=== PATIENT | female | born 1985 ===

== ENCOUNTER 2024-11-26 09:52 | Outpatient (AMB) | payer BC, SELFPAY ==
--- OUTSIDE RECORDS SUMMARY | 2023-11-28 10:08 | XMS_ITS | Encounter Summary ---
Author Organization [facility] Address [address] [place] [address] Care Team Providers Care Air Bag Builder Name Role Phone Espinoza Yan MD Primary Care Provider Un available Encounter Details Date Type Department Care Team (Late st Contact Info) Description 11/28/2023 10:08 AM EDT Hospital Encounter TH HISTORIC ENCOUNTERS EASTERN CONVERSION ONLY Amina Romero PA [address] [place] [address] Social History Tobacco Use Types Packs/Day Years [...] care for your loved ones. For example, childcare worker or elderly care for an older adult? [...] Romero PA-C Service: -- Author Type: Physician Research Development Manager Filed: 11/28/2023 1:06 PM Encounter Date: 11/28/2023 Status: Signed Cheesemaking Laborer: Amina Romero PA-C (Physician Research Development Manager) Cosigner: Mary Elis DO Jose at 11/30/2023 9:30PM HEMATOLOGY FOLLOW UP HPI: 38-year-old mostly Estonian-speaking female who returns to our hematology clinic [...] Yan MD Sign: Amina Romero PA-C Hematology/Oncology [facility] [phone] documented in this encounter Plan of Treatment Upcoming Encounters Date Type Department Care Team (Late st Contact Info) Description 12/03/2024 8:00 AM EDT Office Visit Internal Medicine - [address] [phone] Jesse Flaherty NP [address] [place] [phone] 02/25/2025 9:15 AM EST Office Visit Internal Medicine - [address] [phone] Jesse Flaherty NP [address] [place] [phone] 06/03/2025 10:00 AM EDT Office Visit [facility] Hematology Oncology [address] [place] [phone] Amina Romero PA [address] [place] [address] documented as of this encounter Procedures Procedure Name Priority Date/Time Associated Diagnosis Comments ..MISCELLANEOUS REFERENCE LAB TEST 11/28/2023 documented in this encounter Results * Miscellaneous reference lab test (11/28/2023) us Provider Onbase MD LAB BLOOD ORDERABLES Final Re sult documented in this encounter Visit Diagnoses Not on filedocumented in this encounter Care Teams Air Bag Builder Relationship Specialty Start Date End Date Espinoza Yan MD PCP - General Internal Medicine 07/18/16 10/21/24 documented as of this encounter
--- NOTE | 2024-11-26 09:58 | MHC.OFFVIS ---
Vital Signs 11/26/24 10:05 Height 5 ft Weight 183 lb BMI 35.7 BP 124/88 Blood Pressure Location Lt brachial Position Sitting Respiration 16 Pulse 84 Pulse Oximetry (%) 97 Intake Visit Reasons: vertigo/dizziness Records Management Assistant Required: No Allergies No Known Allergies Allergy (Verified 11/26/24 10:05) Medication List - Last Reconciled 11/26/24 by Blanca Kelley CNP ascorbic acid (vitamin C) mg PO cholecalciferol (vitamin D3) 50 mcg PO DAILY cyanocobalamin (vitamin B-12) 1,000 mcg PO DAILY folic acid PO minoxidil mg PO omeprazole 20 mg PO DAILY semaglutide (Ozempic) 1 mg subcut QWEEK HPI Comments Details: The patient is a 39-year-old female presenting with vertigo and associated symptoms. The vertigo has been occurring intermittently over the past year, with episodes lasting a day or more, and is often triggered by lying down at night. Physical therapy exercises have been helpful in managing the vertigo, although the underlying cause remains undetermined. The patient also reports chronic neck pain, which is exacerbated when lying down and is associated with a burning sensation extending to the shoulder. Previous evaluations included an EMG, which was normal, and an MRI of the cervical spine, which was also normal. She had been seen by in 2022 for upper extremities for which the EMG had been performed. The patient experiences sleep disturbances, often waking multiple times during the night, and has been using melatonin to aid sleep. There is a history of iron deficiency anemia, which has been managed with iron supplements and is currently stable. She denies headaches, falls, LOC, CP, or palpitations. She does not have any known history of seizure or migraine. Prior workup: 10/31/2024 CTA head and neck at [facility]- normal EMG upper extremities- Normal here in 2022 with C-spine MRI - Normal per records but no report or imaging available for review [facility] Medical History (Updated 11/26/24 @ 11:04 by Blanca Kelley CNP) GERD (gastroesophageal reflux disease) HLD (hyperlipidemia) Type 2 diabetes mellitus Lightheadedness Social History (Updated 11/25/24 @ 07:46 by Sydni Jonas CMA) Patient Tobacco Use Status: Never used Tobacco Review of Systems Const All systems reviewed & are unremarkable except as noted in HPI and below Physical Exam Vital Signs: Last Vital Signs Pulse 84 11/26/24 10:05 Resp 16 11/26/24 10:05 BP 124/88 11/26/24 10:05 Pulse Ox 97 11/26/24 10:05 BMI result Body Mass Index 35.7 Const General: cooperative, healthy appearing, comfortable and no acute distress Nutritional Appearance: well nourished Orientation/consciousness: patient oriented x3 Limitations: no limitations HEENT Head: Yes normal to inspection and Yes normocephalic Eyes General: appearance normal, both eyes and all related structures Visual De La Fuente: normal visual de la fuente by confrontation Alignment and Position: alignment normal Periorbital: periorbital findings normal Eyelids: Yes eyelids normal Conjunctivae: conjunctivae normal Sclerae: sclerae normal Neck Neck: Yes normal visual inspection and Yes full ROM Back/Spine/Pelvis Other: Tightness to the bilateral upper trapezius muscles bilaterally Cervical Spine: cervical ROM normal, cervical muscular tenderness, pain with cervical ROM (mild with turning head to the left side) and Cervical spine tenderness Neuro General: patient oriented x3 and deep tendon reflexes 2+ bilaterally Cranial nerves: Yes CN's II-XII intact bilaterally and Yes Facial sensation intact/muscles of mastication intact Cognition (Neuro): normal cognition Gait exam (Neuro): Normal gait present Motor exam (neuro): 5/5 motor strength present throughout and no tremor noted Sensory Exam: double simultaneous stimulation for sensation normal Coordination: [id number] test normal Romberg Test: Negative Pupils: Normal pupillary reactivity/response: bilateral Psych Appearance: grossly normal Mental Status: mental status grossly normal Speech and movement: Normal speech and movement present and Clear speech present Affect: normal affect Attitude: cooperative Thought process: Normal thought process present Thought content: Normal thought content present Insight: Good insight present (Psych) Judgement: Good judgement present (Psych) Assessment & Plan Assessment & Plan (1) Vertigo: Code(s): R42 - Dizziness and giddiness Category: Medical Plan This is a 39 old female patient with a history iron-deficiency anemia stable who is presenting for ongoing and intermittent vertigo over the course of last year. Her symptoms have responded somewhat to physical therapy at her workup has been extensive including a CTA of the head and neck, C-spine MRI, and EMG study all of which were unrevealing. Her exam today is normal aside from some obvious tightness to the upper trapezius muscles which may be contributing to a burning sensation that she is experiencing to the left shoulder area. Spasm of the cervical muscles BP contributing to her dizziness symptoms. We did discuss in depth today some myofascial release techniques at home including heat application in the size. I will start her on low-dose cyclobenzaprine taken at bedtime only to assist with the ongoing muscle tightness. Sleep has also been difficult for her. She does awaken numerous times throughout the night. I would like to obtain sleep study to rule out sleep disordered breathing. Poor sleep quality can contribute to ongoing muscle tightness. -continue physical therapy exercises at home -start low-dose cyclobenzaprine at bedtime -myofascial release techniques at home including heat and massage to the upper trapezius areas -referral for home sleep study Medications: New cyclobenzaprine 5 mg PO BEDTIME PRN 30 tabs 3RF muscle spasm 30 days Coding Level of Care Code New Pt Level 4 (99816) Diagnoses Vertigo R42
[2024-11-26 10:05] VITALS: BP 124/88; PULSE 84; RESP 16; O2SAT 97; BMI 35.7
--- OUTSIDE RECORDS SUMMARY | 2024-11-26 10:45 | XMS_ITS | Clinical Summary ---
Author Organization [facility] Address [address] [place] [address] Phone Care Team Providers Care Card Lacer Jacquard Name Role Phone Jennifer Loaiza MD Primary Care Provider [phone] Allergies No known active allergies Medications ascorbic acid, vitamin C, 500 mg capsule Active cholecalciferol (VITAMIN D-3) 25 mcg (1,000 unit) capsule Take by mouth. Activ e albuterol HFA (PROAIR HFA ; PROVENTIL HFA ; VENTOLIN HFA) 90 mcg/actuation inhaler Inhale 2 Puffs into the lungs every 6 hours as needed for Cough, Wheezing or Shortness of Breath. 3 Active fluticasone propionate (FLONASE) 50 mcg/actuation nasal sprayIndications :Upper respiratory tract infection, unspecified type Administer 1 spray into each nostril 2 (two) times a day. 16 g 5 Active folic acid (FOLVITE) 1 mg tablet Take 1 tablet (1 mg total) by mouth every other day. 45 each 3 5 06/04/19 26 Active ferrous sulfate 325 mg (65 mg elemental iron) tablet Take 1 tablet (325 mg total) by mouth 1 (one) time each day. 90 each 5 06/04/19 26 Active cyanocobalamin, vitamin B-12, 1,000 mcg capsule Take 1 capsule by mouth every other day. 45 capsule 3 5 06/04/19 26 Active omeprazole (PriLOSEC) [address] capsule TAKE 1 CAPSULE(20 MG) BY MOUTH 1 TIME EACH DAY 90 capsule 1 5 Active minoxidiL (LONITEN) 2.5 mg tablet Take 1 tablet (2.5 mg total) by mouth 1 (one) time each day. Active terbinafine (LamISIL) 250 mg tablet Take 1 tablet (250 mg total) by mouth 1 (one) time each day. 5 Active cetirizine (ZyrTEC) 10 mg tablet Take 1 tablet (10 mg total) by mouth 1 (one) time each day. 30 each 5 Active semaglutide (OZEMPIC) 1 mg/dose (4 mg/3 mL) injection penIndications:T ype 2 diabetes mellitus with diabetic microalbuminuria , without long-term current use of insulin ([facility] V24, [facility] V28) Inject 1 mg under the skin every 7 (seven) days. 3 mL 1 5 Active Active Problems Problem Noted Date Diagnosed Date Gastroesophageal reflux disease 10/22/2024 Thrombocytosis 09/20/2023 Diabetes ([facility] V24, [facility] V28) 03/11/2022 Overview (12/12/2023): Diagnosed 03/11/2022 Assessment & Plan (10/22/2024 9:36 AM EDT): Diabetic diet discussed. Will monitor A1c, urine microalbumin . Continue semaglutide. Orders: Hemoglobin A1c; Future Lipid panel with reflex to direct LDL; Future Microalbumin creatinine urine ratio; Future Assessment & Plan (06/04/2024 10:51 AM EDT): Dilated and discussed. Continue semaglutide. Orders: Hemoglobin A1c; Future Lipid panel with reflex to direct LDL; Future Comprehensive metabolic panel; Future Thyroid stimulating hormone with reflex to free t4 and free t3; Future Microalbumin creatinine urine ratio; Future Assessment & Plan (01/24/2024 9:26 AM EST): Diabetic diet discussed. Will check her A1c levels. Will increase Ozempic dose based on her levels. Orders: Hemoglobin A1c; Future Obesity 07/25/2018 Lichen simplex chronicus 11/07/2017 Lichen sclerosus 08/15/2017 Overview (12/12/2023): Last Assessment & Plan: Reviewed findings with patient. Well controlled. I reviewed the importance of regular maintenance topical steroid use to prevent symptoms, further scarring, and squamous cell cancer of the vulva. Even just twice weekly would be fine. She will do so. I also explained the importance of regular follow up to ensure she has no evidence of precancerous or cancerous changes and that she is not having side effects from her medication. I reviewed areas of application and amount of medication to use. Mild intermittent asthma 07/21/2016 Overview (12/12/2023): Triggered seasonally Never hosp Assessment & Plan (01/24/2024 9:26 AM EST): Stable. Continue albuterol inhaler as needed. Encounters Date Type Department Care Team Description 10/30/2024 12:58 PM EDT - 10/30/2024 11:59 PM EDT Hospital Encounter [facility] CT Scan [address] [place] [address] Lightheadedness Discharge Disposition: Home or Self Care 10/25/2024 Telephone Internal Medicine - [address] [place] [address] Jennifer Loaiza MD 10/22/2024 9:15 AM EDT Office Visit Internal Medicine - [address] [place] [address] Espinoza Yan MD Lightheadedness (Primary Dx); Type 2 diabetes mellitus with diabetic microalbuminuria, without long-term current use of insulin (CMS/[facility] V24, CMS/HCC V28); Hyperlipidemia, unspecified hyperlipidemia type; Gastroesophageal reflux disease, unspecified whether esophagitis present 10/01/2024 1:15 PM EDT Office Visit [facility] - [address] [place] [address] Chilango Tripathi PA Benign paroxysmal positional vertigo, unspecified laterality (Primary Dx) 10/01/2024 Telephone Internal Medicine - [address] [place] [address] Espinoza Yan MD from Last 3 Months Immunizations Immunization Administration Dates Next Due HPV 9-valent (Gardisil) 9yo to less than 46yo 01/10/2023,09/05/2022,06/23/2022 Influenza Quadravalent, MDCK , 0.5ml, preservative free (Flucelvax) 6mo and older 01/20/2023,12/25/2017 Influenza Quadravalent, MDCK , 0.5ml, with preservative (Flucelvax) 6mo and older 12/08/2016 Influenza trivalent, MDCK, 0 .5mL, preservative free (Flucelvax) 6mo and older 01/24/2024 Moderna SARS-CoV-2 COVID-19, mRNA, LNP-S, preservative free 03/16/2021,09/01/2020,08/04/2020 Pneumococcal conjugate 20 va lent (Prevnar 20, PCV 20) 2mo and older 05/16/2023 Tdap Tetanus diptheria acell ular pertussis (Boostrix; Adacel) 7yo and older 06/21/2018 Surgical History Surgery Date Site/Laterality Comments SECTION 2011 PROCEDURE: [place] DELIVERY ONLY; COMMENT: x2 CHOLECYSTECTOMY 09/29/2016 PROCEDURE: LAPAROSCOPY, CHOLECYSTECTOMY; COMMENT: [facility] Medical History Medical History Date Comments Mild intermittent asthma 07/21/2016 DX:Mild intermittent asthma Obesity 07/25/2018 DX:Obesity Lichen sclerosus 08/15/2017 DX:Lichen scler osus Lichen simplex chronicus 11/07/2017 DX:Lich en simplex chronicus Type 2 diabetes mellitus wit hout complications (CMS/HCC V24, CMS/HCC V28) DX:Type 2 diabetes mellitus without complications (HCC) Thrombocytosis 09/20/2023 DX:Thrombocytosi s Family History Medical History Relation Name Comments No Known Problems Brother 1 No Known Problems Brother 2 Diabetes Father Other: sepsis Father Heart attack Maternal Grandfather No Known Problems Maternal Grandmother Hypertension Mother No Known Problems Paternal Grandfather No Known Problems Paternal Grandmother No Known Problems Sister 1 No Known Problems Sister 2 Breast cancer Neg Hx Colon cancer Neg Hx Ovarian cancer Neg Hx Pancreatic cancer Neg Hx Prostate cancer Neg Hx Uterine cancer Neg Hx Relation Name Status Comments Brother 1 Alive Brother 2 Alive Father Maternal Grandfather Maternal Grandmother Alive Mother Alive Paternal Grandfather Paternal Grandmother Sister 1 Alive Sister 2 Alive Social History Tobacco Use Types Packs/Day Years [...] care for your loved ones. For example, director of child welfare services or elderly care for an older adult? [...] on file Sexual Orientation Not on file Obstetrics History Last Filed Vital Signs Vital Sign Reading Time Taken Comments Blood Pressure 112/74 10/22/2024 9:04 AM EDT Pulse 86 10/22/2024 9:04 AM EDT Temperature 36.3 C (97.4 F) 10/01/2024 1:12 PM EDT Respiratory Rate - - Oxygen Saturation 99% 06/03/2024 9:54 AM EDT Inhaled Oxygen Concentration - - Weight 85.4 kg (188 lb 4.8 oz) 10/22/2024 9:04 A M EDT Height 152.4 cm (5') 10/22/2024 9:04 AM EDT Body Mass Index 36.77 10/22/2024 9:04 AM EDT Plan of Treatment Upcoming Encounters Date Type Department Care Team (Late st Contact Info) Description 12/03/2024 8:00 AM EDT Office Visit Internal Medicine - [address] [phone] Jesse Flaherty NP [address] [place] [address] 02/25/2025 9:15 AM EST Office Visit Internal Medicine - [address] [phone] Jesse Flaherty NP [address] [place] [address] 06/03/2025 10:00 AM EDT Office Visit [facility] Hematology Oncology [address] [place] [phone] Amina Romero PA [address] [place] [phone] Health Maintenance Due Date Last Done Comments Diabetes: Annual Foot Exam 09/21/1997 Hepatitis B Vaccines (1 of 3 - 19+ 3-dose series) 09/21/2006 HIV Screening 02/05/2022 Hepatitis C Screening 02/05/2022 Depression Screening 02/28/2024 12/31/2023 COVID-19 Vaccine ( season) 2024 03/16/2021, 09/01/2020, 08/04/2020 Influenza Vaccine (#1) 2024 , 01/20/2023, 12/25/2017, Additional history exists Social Influencers of Health Screening 12/30/2024 12/31/2023 Diabetes: Blood Sugar Control Test (HGBA1C) 04/25/2025 10/23/2024, 06/04/2024, 01/24/2024, Additional history exists Diabetes: Annual Retina Eye Exam 07/03/2025 07/03/2024, 05/22/2023 Diabetes: Annual Urine Albumin-Creatinine Ratio (uACR) 10/23/2025 10/23/2024, 06/04/2024, 05/17/2023 Diabetes: Annual GFR (Glomerular Filtration Rate) 10/23/2025 10/23/2024, 06/04/2024, 09/20/2023, Additional history exists DTaP,Tdap,and Td Vaccines (2 - Td or Tdap) 06/21/2028 06/21/2018 Cervical Cancer Screening: HPV 08/07/2028 08/08/2023 Cholesterol Screening (Lipid Panel) 10/23/2029 10/23/2024, 06/04/2024, 05/17/2023 RSV Immunization Adult Patients (1 - 1-dose 75+ series) 09/21/2062 HPV Vaccines Completed 01/10/2023, 08/27, 06/23/2022 Pneumococcal Vaccine: Pediatrics (0 to 5 Years) and At-Risk Patients (6 to 49 Years) Completed 05/16/2023 HIB Vaccines Aged Out No longer eligi ble based on patient's age to complete this topic Hepatitis A Vaccines Aged Out No long er eligible based on patient's age to complete this topic IPV Vaccines Aged Out No longer eligi ble based on patient's age to complete this topic MMR Vaccines Aged Out No longer eligi ble based on patient's age to complete this topic Meningococcal ACWY Vaccine Aged Out N o longer eligible based on patient's age to complete this topic Meningococcal B Vaccine Aged Out No l onger eligible based on patient's age to complete this topic RSV Immunization Patients Under 20 months Aged Out No longer eligible based on patient's age to complete this topic Varicella Vaccines Aged Out No longer eligible based on patient's age to complete this topic Procedures Procedure Name Priority Date/Time Associated Diagnosis Comments CT ANGIO HEAD/NECK WO AND/OR W CONTRAST Routine 10/30/2024 1:29 PM EDT Lightheadedness HEMOGLOBIN A1C Routine 10/23/2024 8:44 AM EDT Type 2 diabetes mellitus with diabetic microalbuminuria, without long-term current use of insulin ([facility] V24, CMS/[facility] V28) LIPID PANEL WITH REFLEX TO DIRECT LDL Routine 10/23/2024 8:44 AM EDT Type 2 diabetes mellitus with diabetic microalbuminuria, without long-term current use of insulin ([facility] V24, CMS/[facility] V28) Hyperlipidemia, unspecified hyperlipidemia type MICROALBUMIN CREATININE URINE RATIO Routine 10/23/2024 8:44 AM EDT Type 2 diabetes mellitus with diabetic microalbuminuria, without long-term current use of insulin ([facility] V24, [facility] V28) BASIC METABOLIC PANEL Routine 10/23/2024 8:44 AM EDT Lightheadedness EXTERNAL DIABETIC RETINA EYE EXAM 07/03/2024 HM HPV Routine 08/08/2023 from Last 3 Months or Most Recently Relevant to Health Maintenance Results * CT Angio Head/Neck wo and/or w Contrast (10/30/2024 1:29 PM EDT) Anatomical Region Laterality Modality Head and Neck Computed Tomogra phy 10/31/2024 1:14 PM EDT Impressions 10/31/2024 1:16 PM EDT NO ACUTE INTRACRANIAL ABNORMALITY. -------- FINAL REPORT -------- Dictated By: Shaun Bowers Dictated Date: 10/31/2024 13:14 ET Assigned Physician: Shaun Bowers Reviewed and Electronically Signed By: Shaun Bowers Signed Date: 10/31/2024 13:16 ET Workstation ID: [id number] Transcribed By: Self Edit Transcribed Date: 10/31/2024 13:14 ET Narrative 10/31/2024 1:16 PM EDT PROCEDURE: CTA HEAD AND NECK INDICATION: Dizziness, non-specific diziness while lyinig down with neck pain TECHNIQUE: CTA of the head and neck with intravenous contrast. Multiplanar reformats. The examination was performed utilizing dose reduction techniques.3-D or MIP images were produced with postprocessing on an independent computer workstation. 90cc Omnipaque 370 injected. Scan was analyzed using [employer] based computer aided triage software. Total DLP: 3263 mGy/cm COMPARISON: No priors available. FINDINGS: Noncon Brain: Cerebral hemispheres are symmetric without evidence for mass, hemorrhage or CT evidence for acute territorial infarct. CTA Neck: There is a left-sided aortic arch. Great vessels are patent with conventional anatomy. Common carotid and internal carotid arteries are patent in the neck. Cervical vertebral arteries are patent. Visualized lung apices are clear. Soft tissues of the neck are normal. CTA Head: Intracranial portions of the internal carotid arteries are patent. Proximal middle and anterior circulation is patent. Vertebrobasilar system is patent. Proximal director of patient financial services are patent. Major dural venous sinuses opacify normally with contrast. Extracranial structures are unremarkable. Degenerative changes in the bones. Procedure Note Shaun Bowers MD - 10/31/2024 PROCEDURE: CTA HEAD AND NECK INDICATION: Dizziness, non-specific diziness while lyinig down with neck pain TECHNIQUE: CTA of the head and neck with intravenous contrast. Multiplanarreformats. The examination was performed utilizing dose reductiontechniques.3-D or MIP images were produced with postprocessing on anindependent computer workstation. 90cc Omnipaque 370 injected. Scan wasanalyzed using [employer] based computer aided triage software. Total DLP: 3263 mGy/cm COMPARISON: No priors available. FINDINGS: Noncon Brain: Cerebral hemispheres are symmetric without evidence for mass, hemorrhageor CT evidence for acute territorial infarct. CTA Neck: There is a left-sided aortic arch. Great vessels are patent withconventional anatomy. Common carotid and internal carotid arteries arepatent in the neck. Cervical vertebral arteries are patent. Visualized lung apices are clear. Soft tissues of the neck are normal. CTA Head: Intracranial portions of the internal carotid arteries are patent. Proximal middle and anterior circulation is patent. Vertebrobasilar system is patent. Proximal director of patient financial services are patent. Major dural venous sinuses opacify normally with contrast. Extracranial structures are unremarkable. Degenerative changes in thebones. IMPRESSION: NO ACUTE INTRACRANIAL ABNORMALITY. -------- FINAL REPORT -------- Dictated By: Shaun Bowers Dictated Date: 10/31/2024 13:14 ET Assigned Physician: Shaun Bowers Reviewed and Electronically Signed By: Shaun Bowers Signed Date: 10/31/2024 13:16 ET Workstation ID: [id number] Transcribed By: Self Edit Transcribed Date: 10/31/2024 13:14 ET Espinoza Yan MD IM CT PROCEDURES Final R esult * Lipid panel with reflex to direct LDL (10/23/2024 8:44 AM EDT) Cholesterol 145 0 - 200 mg/dL LAB CHEMISTRY METHOD 10/23/2024 1:51 PM EDT [facility] Triglycerides 80 0 - 150 mg/dL LAB CHEMISTRY METHOD 10/23/2024 1:51 PM EDT [facility] HDL 44 >=40 mg/dL LAB CHEMISTRY METHOD 10/23/2024 1:51 PM EDT [facility] LDL Calculated 85 0 - 100 mg/dL LAB CHEMISTRY METHOD 10/23/2024 1:51 PM EDT [facility] Comment:Estimated LDL Calcul ated using equation: Total cholesterol - HDL cholesterol - (Triglycerides/5) VLDL Cholesterol Partha 16 mg/dL LAB CHEMISTRY METHOD 10/23/2024 1:51 PM EDT [facility] Non HDL Chol. (LDL+VLDL) 101 <145 mg/dL LAB CHEMISTRY METHOD 10/23/2024 1:51 PM EDT [facility] Chol/HDL Ratio 3.3 0.0 - 4.4 LAB CHEMISTRY METHOD 10/23/2024 1:51 PM EDT [facility] Blood Venous blood specimen / Unknown Venipuncture / Unknown 10/23/2024 8:44 AM EDT 10/23/2024 8:44 AM EDT Espinoza Yan MD LAB BLOOD ORDERABLES Radha l Result Performing Organization Address City/[facility] [address]/ZIP Co de Phone Number [facility] [address] [place] [address], * (ABNORMAL) Microalbumin creatinine urine ratio (10/23/2024 8:44 AM EDT) Creatinine, Urine 147.0 mg/dL LAB CHEMISTRY METHOD 10/23/2024 2:07 PM EDT [facility] Microalb, Ur 31.9(H) 0.0 - 29.0 mg/L LAB CHEMISTRY METHOD 10/23/2024 2:07 PM EDT [facility] Microalb/Crea t Ratio 22 <30 mg/g creat LAB CHEMISTRY METHOD 10/23/2024 2:07 PM EDT [facility] Urine Urine specimen obtained by clean catch procedure / Unknown Non-blood Collection / Unknown 10/23/2024 8:44 AM EDT 10/23/2024 8:44 AM EDT Espinoza Yan MD LAB URINE ORDERABLES Radha l Result Performing Organization Address City/[facility] [address]/ZIP Co de Phone Number [facility] [address] [place] [address], * Hemoglobin A1c (10/23/2024 8:44 AM EDT) Pathologist [facility] Hemoglobin A1C 6.2 <6.5 % LAB CHEMISTRY METHOD 10/23/2024 1:45 PM EDT [facility] Mean Bld Glu Estim. 131 mg/dL LAB CHEMISTRY METHOD 10/23/2024 1:45 PM EDT [facility] Blood Venous blood specimen / Unknown Venipuncture / Unknown 10/23/2024 8:44 AM EDT 10/23/2024 8:44 AM EDT Espinoza Yan MD LAB BLOOD ORDERABLES Radha l Result [facility] [address] [place] [address], * Basic metabolic panel (10/23/2024 8:44 AM EDT) [facility] Sodium 136 133 - 145 mmol/L LAB CHEMISTRY METHOD 10/23/2024 1:48 PM T [facility] Potassium 4.6 3.5 - 5.5 mmol/L LAB CHEMISTRY METHOD 10/23/2024 1:48 PM [facility] Chloride 104 96 - 110 mmol/L LAB CHEMISTRY METHOD 10/23/2024 1:48 PM [facility] CO2 27 21 - 32 mmol/L LAB CHEMISTRY METHOD 10/23/2024 1:48 PM T [facility] Anion Gap 5 3 - 11 LAB CHEMISTRY METHOD 10/23/2024 1:48 PM [facility] Glucose 99 70 - 100 mg/dL LAB CHEMISTRY METHOD 10/23/2024 1:48 PM [facility] BUN 14 5 - 25 mg/dL LAB CHEMISTRY METHOD 10/23/2024 1:48 PM [facility] Creatinine 0.74 0.50 - 1.10 mg/dL LAB CHEMISTRY METHOD 10/23/2024 1:48 PM EDT [facility] eGFR 107 >=60 mL/min/1. 73m2 LAB CHEMISTRY METHOD 10/23/2024 1:48 PM EDT [facility] Comment:Calculation based on the Chronic Kidney Disease Epidemiology Collaboration (CKD-EPI) equation refit without adjustment for race. BUN/Creatinine Ratio 18.9 LAB CHEMISTRY METHOD 10/23/2024 1:48 PM EDT [facility] Calcium 9.7 8.5 - 10.5 mg/dL LAB CHEMISTRY METHOD 10/23/2024 1:48 PM EDT [facility] Blood Venous blood specimen / Unknown Venipuncture / Unknown 10/23/2024 8:44 AM EDT 10/23/2024 8:44 AM EDT Espinoza Yan MD LAB BLOOD ORDERABLES Radha l Result [facility] [address] [place] [address], * External Diabetic Retina Eye Exam Report (07/03/2024) Anatomical Region Laterality Modality Ultrasound us Provider [facility] US PROCEDURES Final Result * Cervical Cancer Screening: HPV (08/08/2023) Cervical Cancer Screening: HPV abstracted, negative Historical Provider HEALTH MAINTENANCE Final Result from Last 3 Months or Most Recently Relevant to Health Maintenance Insurance [facility] Care Teams Card Lacer Jacquard Relationship Specialty Start Date End Date Jennifer Loaiza MD [address] [place] [address] PCP - General Internal Medicine 10/22/24
--- OUTSIDE RECORDS SUMMARY | 2024-11-26 10:45 | XMS_ITS | Clinical Summary ---
Author Organization [employer] [facility] Address [address] [place] [address] Care Team Providers Care Package Sorter Name Role Phone Espinoza Yan MD Primary Care Provider [phone] Allergies No known active allergies Medications Medication Sig Dispensed Refills Start Date End Date Status ferrous sulfate 325 (65 FE) MG tablet Take by mouth every morning with breakfast. 0 Active vitamin D3 (cholecalciferol) 25 MCG (1000 UT) tablet Take 1 tablet (25 mcg total) by mouth daily. 0 Active ascorbic acid (VITAMIN C) 500 MG tablet Take 1 tablet (500 mg total) by mouth daily. 0 Active omeprazole (PriLOSEC) 20 MG capsule Take 1 capsule (20 mg total) by mouth daily. 0 Active metFORMIN (GLUCOPHAGE) tablet 500 mg Take 1 tablet (500 mg total) by mouth every morning with breakfast. 0 Active folic acid (FOLVITE) tablet 1 mg Take 1 tablet (1 mg total) by mouth daily. 90 tablet 0 08/21/2023 Active Cyanocobalamin 1000 MCG CAPS Take 1 capsule by mouth daily. 90 capsule 0 08/21/2023 Active Semaglutide,0.25 or 0.5MG/DOS, (Ozempic, 0.25 or 0.5 MG/DOSE,) 2 MG/3ML SOPN Inject under the skin. 0 Active Social History Tobacco Use Types Packs/Day Years Used Date Smoking Tobacco: Never Smokeless Tobacco: Never Tobacco Cessation:Counseling Given: Not Answered Alcohol Use Standard Drinks/Week Comments Yes 0 (1 standard drink = 0.6 oz pur e alcohol) Occasionally Sex and Gender Information Value Date Recorded Sex Assigned at Not on file Gender Identity Not on file Sexual Orientation Not on file Job Start Date Occupation Industry Not on file Not on file Not on file Last Filed Vital Signs Vital Sign Reading Time Taken Comments Blood Pressure 121/71 11/28/2023 10:14 AM EDT Pulse 76 11/28/2023 10:14 AM EDT Temperature 36.8 C (98.3 F) 11/28/2023 10:14 AM EDT Respiratory Rate - - Oxygen Saturation 100% 11/28/2023 10:14 AM EDT Inhaled Oxygen Concentration - - Weight 88.5 kg (195 lb) 11/28/2023 10:14 AM EDT Height 152.4 cm (5') 11/28/2023 10:14 AM EDT Body Mass Index 38.08 11/28/2023 10:14 AM EDT Plan of Treatment Health Maintenance Due Date Last Done Comments Hepatitis B Vaccines (1 of 3 - 3-dose series) 1987 Hepatitis C Screening 1987 COVID-19 Vaccine (#1) 03/24/1988 Depression Screening 1999 Preventative Health Evaluation 09/21/2005 Cervical Cancer Screening (Pap Smear) 09/21/2008 Influenza Vaccine (#1) 2024 3, 12/25/2017, 12/08/2016 DTap / Tdap / Td (2 - Td or Tdap) 06/21/2028 06/21/2018 Pneumococcal Vaccine Aged Out 05/16/2023 No long er eligible based on patient's age to complete this topic RSV Ped < 20 months Aged Out No longe r eligible based on patient's age to complete this topic Care Teams Package Sorter Relationship Specialty Start Date End Date Esipnoza Yan MD [address] [place] [id number] PCP - General Internal Medicine 08/07/23
== END 2024-11-26 10:50 | disposition home or self-care (01) ==
LOC: HO.HSM 09:53
PROVIDERS: PCP Internal Medicine; Visit Provider Nurse Practitioner
DX: R42 Dizziness and giddiness (principal)
CPT/HCPCS: 99204

== ENCOUNTER 2025-01-15 10:55 | Outpatient (AMB) | payer BC, SELFPAY ==
--- OUTSIDE RECORDS SUMMARY | 2023-11-28 09:08 | XMS_ITS | Encounter Summary ---
Author Organization [facility] Address [address] [place] [address] Care Team Providers Care Nurses Aide Name Role Phone Espinoza Yan MD Primary Care Provider [phone] Encounter Details Date Type Department Care Team (Late st Contact Info) Description 11/28/2023 10:08 AM EDT Hospital Encounter TH HISTORIC ENCOUNTERS EASTERN CONVERSION ONLY Amina Romero PA [address] [place] [address] Social History Tobacco Use Types Packs/Day Years Used Date Smoking Tobacco: Never Smokeless Tobacco: Never Alcohol Use Standard Drinks/Week Comments Yes 0 (1 standard drink = 0.6 oz pur e alcohol) Housing Instability Answer Date Recorde d Are you worried that in the next 2 months you may not have stable housing? No 12/31/2023 Food Access & Nutrition Answer Date Rec orded Do you have access to a vari ety of food including fruits and vegetables? Yes 12/31/2023 Health Literacy Answer Date Recorded How often do you need to hav e someone help you when you read instructions, pamphlets, or other written material from your doctor or pharmacy? Never 12/31/2023 Caregiver: How often do you need to have someone help you when you read instructions, pamphlets, or other written material from your doctor or pharmacy? Not on file 12/31/2023 Financial Risk Answer Date Recorded How hard is it for you to pa y for the very basics like food, housing, medical care, and air conditioning / heating? Not very hard 12/31/2023 Transportation Answer Date Recorded Has the lack of transportati on kept you from meetings, work, or from getting things needed for daily living? No Has the lack of transportati on kept you from medical appointments or from getting medications? No 12/31/2023 Social Isolation Answer Date Recorded How often do you feel lonely or isolated from th ose around you? Never 12/31/2023 Food Risk Answer Date Recorded Within the past 12 months we worried whether our food would run out before we got money to buy more. Never true 12/31/2023 Within the past 12 months th e food we bought just didn't last and we didn't have money to get more. Never true 12/31/2023 Dependent Care Answer Date Recorded Do you need help finding or paying for care for your loved ones. For example, child adolescent care or elderly care for an older adult? No 12/31/2023 Education Answer Date Recorded Do you think completing more education or training, like finishing a GED, going to college, or learning a trade, would be helpful for you? Yes 12/31/2023 Employment and Income Answer Date Recor ded During the last four weeks, have you been actively looking for work? No 12/31/2023 Living Situation Answer Date Recorded What is your living situation? Unrecognized valu e 12/31/2023 Comments No Sex and Gender Information Value Date Recorded Sex Assigned at Not on file Legal Sex Female 4:54 AM EST Gender Identity Not on file Sexual Orientation Not on file documented as of this encounter Last Filed Vital Signs Vital Sign Reading Time Taken Comments Blood Pressure 121/71 11/28/2023 10:14 AM EDT Pulse 76 11/28/2023 10:14 AM EDT Temperature - - Respiratory Rate - - Oxygen Saturation - - Inhaled Oxygen Concentration - - Weight 88.5 kg (195 lb) 11/28/2023 10:14 AM EDT Height 152.4 cm (5') 11/28/2023 10:14 AM EDT Body Mass Index 38.08 11/28/2023 10:14 AM EDT documented in this encounter Progress Notes * CORDELIA Katz - 11/28/2023 10:00 AM EDT Images from the original note were not included. Progress Notes by Amina Romero PA-C at 11/28/2023 10:00 AM Author: Amina Romero PA-C Service: -- Author Type: Physician Cell Biologist Filed: 11/28/2023 1:06 PM Encounter Date: 11/28/2023 Status: Signed Circulation Representative: Amina Romero PA-C (Physician Cell Biologist) Cosigner: MaryVijayaes DO Jose at 11/30/2023 9:30PM HEMATOLOGY FOLLOW UP HPI: 38-year-old mostly Rwandan-speaking female who returns to our hematology clinic for follow up of thrombocytosis. She is here for routine follow-up. Labs from last week showed that her RIZWAN is currently well-controlled with iron + vitamin C. She completed 90 days course of folate supplementation and folate level is optimal. B12 is much improved with supplementation, it went from 310 to 820. She saw GI in early September. She underwent colonoscopy + EGD last week and both came back normal. Thrombocytosis improved and it is only mildly elevated at 414 K. RBC remains elevated at 5.2 BCR/abl (PCR) and Prateek 2 tests were negative. Sleep study is scheduled for December 24. Aside from short lived fatigue with exertion, which could be from deconditioning as she is overweight, she has no other medical complaints at this time. She denies any clinical bleeding or black stools. (copied from prior note for clinical reference and updated as needed) As of April of this year, her platelet count was found to be elevated at 436 and then went up to 481 K in May. She also has mild leukocytosis and erythrocytosis associated with it. While H&H isnormal, MCV is low, and since end of last year iron studies have been low. She has been on iron supplementation for the past year, Although she took a 2-month break in December and January. Since earlier this year she has been taking iron with vitamin C. She denies history of heavy menses. She denies any clinical bleeding or black stools. No family history of anemia or cancer. She denies any frequent or excessive NSAIDs use. No history of gastric surgery. No bleeding or bruising. She is not a smoker. She is overweight. She has asthma and uses albuterol inhaler as needed, which is very infrequent because she claims her asthma is well-controlled. She has not had any steroids vicki long time. Her admits that she snores at night. He admits to fatigue and has to catch her breath after going up a flight of stairs, but she denies any unintentional weight loss, night sweats, swollen glands, flushing or pruritus, fever or chills, headache, dizziness, chest pain, palpitations, calf pain. ROS: GENERAL: no malaise, significant weight loss or fever NECK: No lumps, goiter, pain or significant neck swelling RESPIRATORY: No cough, wheezing or shortness of breath CARDIOVASCULAR: No chest pain, leg swelling or palpitations GI: No abdominal discomfort, blood in stools or black stools MUSCULOSKELETAL: No joint pain or swelling, back pain, or muscle pain. HEMATOLOGY/LYMPHOLOGY No prolonged bleeding, easy bruisability or swollen nodes Other Systems review is non contributory PAST MEDICAL HISTORY: Active Ambulatory Problems Diagnosis Date Noted ? No Active Ambulatory Problems Resolved Ambulatory Problems Diagnosis Date Noted ? No Resolved Ambulatory Problems Past Medical History: Diagnosis Date ? Diabetes mellitus (HCC) Obesity RIZWAN Lichen simplex chronicus Lichen sclerosus PAST SURGICAL HISTORY: Past Surgical History: Procedure Laterality Date ? CHOLECYSTECTOMY SOCIAL HISTORY: Social History Tobacco Use ? Smoking status: Never ? Smokeless tobacco: Never Substance Use Topics ? Alcohol use: Yes Comment: Occasionally She is currently not working. She lives with her and her 2 kids. FAMILY HISTORY: No family history on file. Denies family history of anemia or cancer. MEDICATIONS: Current Outpatient Medications: ? ascorbic acid (VITAMIN C) 500 MG tablet, Take 1 tablet (500 mg total) by mouth daily., Disp: , Rfl: ? Cyanocobalamin 1000 MCG CAPS, Take 1 capsule by mouth daily., Disp: 90 capsule, Rfl: 0 ? ferrous sulfate 325 (65 FE) MG tablet, Take by mouth every morning with breakfast., Disp: , Rfl: ? folic acid (FOLVITE) tablet 1 mg, Take 1 tablet (1 mg total) by mouth daily., Disp: 90 tablet, Rfl: 0 ? metFORMIN (GLUCOPHAGE) tablet 500 mg, Take 1 tablet (500 mg total) by mouth every morning with breakfast., Disp: , Rfl: ? omeprazole (PriLOSEC) 20 MG capsule, Take 1 capsule (20 mg total) by mouth daily., Disp: , Rfl: ? Semaglutide,0.25 or 0.5MG/DOS, (Ozempic, 0.25 or 0.5 MG/DOSE,) 2 MG/3ML SOPN, Inject under the skin., Disp: , Rfl: ? vitamin D3 (cholecalciferol) 25 MCG (1000 UT) tablet, Take 1 tablet (25 mcg total) by mouth daily., Disp: , Rfl: You are allergic to the following Date Reviewed: 08/08/2023 No active allergies PHYSICAL EXAM: BP 121/71 Pulse 76 Temp 98.3 ??F (36.8 ??C) Ht 5' (1.524 m) Wt 88.5 kg (195 lb) SpO2 100% BMI 38.08 kg/m?? APPEARANCE: Alert and in no acute distress EYES: PERRL, conjunctiva pink and sclera are Normal without icterus ORAL CAVITY: No erythema or exudates HEART: RRR with normal S1 and S2, no murmurs, no gallops, no JVD appreciated LUNG: clear to auscultation bilaterally ABDOMEN: soft, nontender, (+) BS in all Q's, no rebound or guarding EXTREMITIES: Extremities warm and well perfused without clubbing, cyanosis, rash or edema NEURO: Oriented X 3, no focal weakness; sensation is normal LABS: Due to technical issues, I'm unable to copy & past test results. 11/22/23: WBC 11.8 RBC 5.2 Hemoglobin 12.8 Hematocrit 41.3 MCV 79.7 Platelets 414 Neutrophil # 7.63 Lymph # 3.40 Iron 43 TIBC 392 Iron saturation 11 Ferritin 45 B12 820 Folate 18.3 Testing: Review of Lab results , interpreted Review of Imaging, interpreted Review of External Documentation Tests ordered - CBCd, B12/Folate, Iron studies in [address](R) 1. Iron deficiency anemia, unspecified iron deficiency anemia type IRON DEFICIENCY ANEMIA 2. Obesity (BMI 30-39.9) BODY MASS INDEX 30+ - OBESITY 3. Erythrocytosis ERYTHROCYTOSIS 4. Thrombocytosis THROMBOCYTOSIS 5. Leukocytosis, unspecified type LEUKOCYTOSIS PLAN: Thrombocytosis; RIZWAN: -Mild platelet elevation since April 2023, improving -Prateek 2 test is negative -PLT count went down from 481 to 414 K -Low iron stores since late 2022 which typically causes reactive thrombocytosis -Recent labs showed that anemia is currently controlled on oral supplementation -No history of heavy menses -Elevated RBC and WBC counts associated with it -Hgb electrophoresis is unremarkable -Normal renal and liver functions -C/W oral iron + vitamin C; monitor iron studies -Seen by GI on 09/28/23 -Underwent EGD + Colonoscopy on 11/22/23: both are normal -B12 and folate are optimal with supplementation -FOV in 6 months with labs prior (lab slip provided); RTO sooner prn Erythrocytosis: -Not a smoker -Prateek 2 is negative -Slightly improved with 3 months supplementation of folic acid -Snores at night; ? TERRELL -Sleep study scheduled for 12/25/23 Leukocytosis: -Chronic, stable -Associated with erythrocytosis and thrombocytosis -Normal to minimally elevated neutrophil count and normal lymphocyte counts -BCR/abl & Prateek 2 tests are negative -Review of peripheral smear is unrevealing -Obesity could account or contribute to this elevation as well as other inflammatory conditions such as Lichen Simplex chronicus -TERRELL can also contribute to this condition; TERRELL evaluation pending -Monitor for now -FOV in 6 months Amina Romero PA-C Cc: Espinoza Yan MD Sign: Amina Romero PA-C Hematology/Oncology [facility] [phone] documented in this encounter Plan of Treatment Upcoming Encounters Date Type Department Care Team (Late st Contact Info) Description 02/25/2025 9:15 AM EST Office Visit Internal Medicine - [facility] [address] [place] [address] Jesse Flaherty NP [address] [place] [address] 06/03/2025 10:00 AM EDT Office Visit Hematology Oncology [address] [place] [phone] Amina Romero PA [address] [place] [address] documented as of this encounter Procedures Procedure Name Priority Date/Time Associated Diagnosis Comments ..MISCELLANEOUS REFERENCE LAB TEST 11/28/2023 documented in this encounter Results * Miscellaneous reference lab test (11/28/2023) us Provider Onbase LAB BLOOD ORDERABLES Final Re sult documented in this encounter Visit Diagnoses Not on filedocumented in this encounter Care Teams Nurses Aide Relationship Specialty Start Date End Date Espinoza Yan MD PCP - General Internal Medicine 07/18/16 10/21/24 documented as of this encounter
--- NOTE | 2025-01-15 11:05 | A.OFFVIS_ITS ---
Vital Signs 01/15/25 11:09 Height 5 ft Weight 180 lb BMI 35.2 BP 118/86 Blood Pressure Location Rt brachial Position Sitting Respiration 16 Pulse 96 Pulse Source Pulse Oximeter Pulse Oximetry (%) 97 Oxygen Delivery Method Room Air Intake Visit Reasons: 2m Allergies No Known Allergies Allergy (Verified 01/15/25 11:12) HPI Comments Details: Vannesa is a 39-year-old female patient presents today for follow up visit regarding symptoms of vertigo and myofascial pain. Her symptoms has been occur ring intermittently over the course of the year with episodes lasting a day or more often triggered by lying down at night. Physical therapy exercise has been helpful for managing the vertigo though with the underlying cause has been undetermined. She had reported neck pain and pain to the upper trapezius areas felt as a burning sensation extending into the shoulders. She also had paresthesias running down her arms bilaterally. An EMG study was normal and an MRI of the cervical spine was also normal. She also had explains she had poor sleep quality and sleep disturbances often waking up during the night. Melatonin had only been minimally effective. She denied actual headaches, falls, loss of consciousness, chest pain, or palpitations. She denied any history of migraine or seizure. At the time of last visit, I recommended a trial of cyclobenzaprine 5 mg nightly for presumed muscle tension. She reports to me today that since starting the cyclobenzaprine 5 mg at bedtime, she had near complete resolution of her dizziness and paresthesias. She did trial a vacation off of it over the course of the last 2 weeks and had some return of her symptoms. She tolerated the medication well he does report that she slept very well on it. She had no other side effects. For this Prior workup: 10/31/2024 CTA head and neck at [facility]- normal EMG upper extremities- Normal here in [address]Kareem Penny-spine MRI - Normal per records but no report or imaging available for review [facility] Medical History (Updated 01/15/25 @ 11:32 by Blanca Kelley CNP) GERD (gastroesophageal reflux disease) HLD (hyperlipidemia) Type 2 diabetes mellitus Lightheadedness Social History (Updated 11/25/24 @ 07:46 by Sydni Jonas [facility]) Patient Tobacco Use Status: Never used Tobacco Review of Systems Const All systems reviewed & are unremarkable except as noted in HPI and below Physical Exam Vital Signs: Last Vital Signs Pulse 96 01/15/25 11:09 Resp 16 01/15/25 11:09 BP 118/86 01/15/25 11:09 Pulse Ox 97 01/15/25 11:09 Oxygen Delivery Method Room Air 01/15/25 11:09 BMI result Body Mass Index 35.2 Const General: cooperative, healthy appearing, comfortable and no acute distress Nutritional Appearance: well nourished Orientation/consciousness: patient oriented x3 Limitations: no limitations HEENT Head: Yes normal to inspection and Yes normocephalic Eyes General: appearance normal, both eyes and all related structures Visual Mast: normal visual mast by confrontation Alignment and Position: alignment normal Periorbital: periorbital findings normal Eyelids: Yes eyelids normal Conjunctivae: conjunctivae normal Sclerae: sclerae normal Neck Neck: Yes normal visual inspection and Yes full ROM Back/Spine/Pelvis Other: Tightness to the bilateral upper trapezius muscles bilaterally Cervical Spine: cervical ROM normal, cervical muscular tenderness, pain with cervical ROM (mild with turning head to the left side) and Cervical spine tenderness Neuro General: patient oriented x3 and deep tendon reflexes 2+ bilaterally Cranial nerves: Yes CN's II-XII intact bilaterally and Yes Facial sensation intact/muscles of mastication intact Cognition (Neuro): normal cognition Gait exam (Neuro): Normal gait present Motor exam (neuro): 5/5 motor strength present throughout and no tremor noted Sensory Exam: double simultaneous stimulation for sensation normal Coordination: [id number] test normal Romberg Test: Negative Pupils: Normal pupillary reactivity/response: bilateral Psych Appearance: grossly normal Mental Status: mental status grossly normal Speech and movement: Normal speech and movement present and Clear speech present Affect: normal affect Attitude: cooperative Thought process: Normal thought process present Thought content: Normal thought content present Insight: Good insight present (Psych) Judgement: Good judgement present (Psych) Assessment & Plan Assessment & Plan (1) Vertigo: Code(s): R42 - Dizziness and giddiness Category: Medical (2) Paresthesia: Code(s): R20.2 - Paresthesia of skin Category: Medical (3) Poor sleep pattern: Code(s): G47.8 - Other sleep disorders Category: Medical Plan This is a 39-year-old female patient following up today for dizziness and paresthesias with normal MRI of the C-spine and EMG study. Symptoms thought to be musculoskeletal and she was placed on cyclobenzaprine with resolution of symptoms. She did stop for a couple of weeks and had return of her symptoms. We did discuss again continuation of the medication indefinitely at bedtime which has also helped her sleep. I will send for refills in the cyclobenzaprine 5 mg at bedtime and she will continue some myofascial release and relaxation techniques at home which can also be beneficial. We eventually can trial off of it but for now we will continue for 6 months. Could eventually consider switch to TAC. -continue cyclobenzaprine 5 mg at bedtime -continue myofascial release techniques and relaxation techniques at home -follow up in 6 months or sooner if needed Medications: Changed From cyclobenzaprine 5 mg PO BEDTIME 30 days PRN 30 tabs 3RF muscle spasm To cyclobenzaprine 5 mg PO BEDTIME PRN 90 tabs 3RF muscle spasm 90 days Coding Level of Care Code Est Pt Level 3 (93304) Diagnoses Vertigo R42 Paresthesia R20.2 Poor sleep pattern G47.8
[2025-01-15 11:09] VITALS: BP 118/86; PULSE 96; RESP 16; O2SAT 97; BMI 35.2
--- OUTSIDE RECORDS SUMMARY | 2025-01-15 21:33 | XMS_ITS | Clinical Summary ---
Author Organization [employer] [facility] Address [address] [place] [address] Care Team Providers Care Brass Pourer Name Role Phone Espinoza Yan MD Primary Care Provider [phone] Allergies No known active allergies Medications Medication [...] age to complete this topic Care Teams Brass Pourer Relationship Specialty Start Date End Date Espinoza Yan MD [address] [place] [id number] PCP - General Internal Medicine 08/07/23
--- OUTSIDE RECORDS SUMMARY | 2025-01-15 21:33 | XMS_ITS | Clinical Summary ---
Author Organization [facility] Address [address] [place] [address] Phone Care Team Providers Care Electronic Organ Mechanic Name Role Phone Jennifer Loaiza MD Primary Care Provider [phone] Allergies No known active allergies Medications ascorbic acid, vitamin C, 500 mg capsule Active cholecalciferol (VITAMIN D-3) 25 mcg (1,000 unit) capsule Take by mouth. A ctive albuterol HFA (PROAIR HFA ; PROVENTIL HFA ; VENTOLIN HFA) 90 mcg/actuation inhaler Inhale 2 Puffs into the lungs every 6 hours as needed for Cough, Wheezing or Shortness of Breath. 3 Active fluticasone propionate (FLONASE) 50 mcg/actuation nasal sprayIndication s:Upper respiratory tract infection, unspecified type Administer 1 [...] 1 TIME EACH DAY 90 capsule 1 05/30/202 5 Active minoxidiL (LONITEN) 2.5 mg tablet [...] (OZEMPIC) 1 mg/dose (4 mg/3 mL) injection penIndications: Type 2 diabetes mellitus with diabetic microalbuminuri a, without long-term current use of insulin ([facility] V24, [facility] V28) Inject 1 mg under the skin every 7 (seven) days. 3 mL 1 5 Active semaglutide (OZEMPIC) 1 mg/dose (4 mg/3 mL) injection penIndications: Type 2 diabetes mellitus with diabetic microalbuminuri a, without long-term current use of insulin ([facility] V24, [facility] V28) Inject 1 mg under the skin every 7 (seven) days. 3 mL 1 5 01/02/20 25 Discontin ued(Reord er) Active Problems Problem Noted Date Diagnosed Date Gastroesophageal reflux disease 10/22/2024 Thrombocytosis 09/20/2023 Diabetes ([facility] V24, [facility] V28) 03/11/2022 Overview (12/12/2023): Diagnosed 03/11/2022 Assessment [...] - 10/30/2024 11:59 PM EDT Hospital Encounter [facility] CT Scan [address] [place] [id number] Lightheadedness Discharge Disposition: Home or Self Care 10/25/2024 Telephone [facility] - [facility] [address] [facility] [place], [place] [phone] Jennifer Loaiza MD 10/22/2024 9:15 AM EDT Office Visit [facility] - [facility] [address] [facility] [place], [place] [phone] Espinoza Yan MD Lightheadedness (Primary Dx); Type 2 diabetes mellitus with diabetic microalbuminuria, without long-term current use of insulin ([facility] V24, [facility] V28); Hyperlipidemia, unspecified hyperlipidemia type; Gastroesophageal reflux disease, unspecified whether esophagitis present from Last 3 Months Immunizations Immunization Administration [...] Surgery Date Site/Laterality Comments SECTION 2011 PROCEDURE: ID DELIVERY ONLY; COMMENT: x2 CHOLECYSTECTOMY 09/29/2016 PROCEDURE: LAPAROSCOPY, CHOLECYSTECTOMY; COMMENT: [facility] Medical History Medical History Date Comments Mild intermittent asthma 07/21/2016 DX:Mild intermittent asthma Obesity 07/25/2018 DX:Obesity Lichen sclerosus 08/15/2017 DX:Lichen scler osus Lichen simplex chronicus 11/07/2017 DX:Lich en simplex chronicus Type 2 diabetes mellitus wit hout complications ([facility] V24, [facility] V28) DX:Type 2 diabetes mellitus without complications ([facility]) Thrombocytosis 09/20/2023 DX:Thrombocytosi s Family History Medical [...] for your loved ones. For example, child development specialist or elderly care for an older adult? [...] AM EST [facility] [address] [place] [phone] Jesse Flaherty NP [address] [place] [phone] 06/03/2025 10:00 AM EDT Office Visit [facility] Hematology Oncology [address] [place] [phone] Amina Romero PA [address] [place] [address] Health Maintenance Due Date Last Done Comments [...] microalbuminuria, without long-term current use of insulin ([facility] V24, [facility] V28) LIPID PANEL WITH REFLEX TO DIRECT LDL Routine 10/23/2024 8:44 AM EDT Type 2 diabetes mellitus with diabetic microalbuminuria, without long-term current use of insulin ([facility] V24, [facility] V28) Hyperlipidemia, unspecified hyperlipidemia type MICROALBUMIN CREATININE URINE RATIO Routine 10/23/2024 8:44 AM EDT Type 2 diabetes mellitus with diabetic microalbuminuria, without long-term current use of insulin (CMS/[facility] V24, CMS/HCC V28) BASIC METABOLIC PANEL Routine 10/23/2024 8:44 [...] Signed Date: 10/31/2024 13:16 ET Workstation ID: [id number] Transcribed By: Self Edit Transcribed Date: 10/31/2024 [...] Omnipaque 370 injected. Scan was analyzed using [employer] based computer aided triage software. Total DLP: [...] is patent. Vertebrobasilar system is patent. Proximal bone worker are patent. Major dural venous sinuses opacify [...] 90cc Omnipaque 370 injected. Scan wasanalyzed using [employer] AI based computer aided triage software. [...] is patent. Vertebrobasilar system is patent. Proximal bone worker are patent. Major dural venous sinuses opacify normally with contrast. Extracranial structures are unremarkable. Degenerative changes in thebones. IMPRESSION: NO ACUTE INTRACRANIAL ABNORMALITY. -------- FINAL REPORT -------- Dictated By: Shaun Bowers Dictated Date: 10/31/2024 13:14 ET Assigned Physician: Shaun Bowers Reviewed and Electronically Signed By: Shaun Bowers Signed Date: 10/31/2024 13:16 ET Workstation ID: [id number] Transcribed By: Self Edit Transcribed Date: 10/31/2024 13:14 ET us Espinoza Yan MD IMG CT PROCEDURES Final R esult * Lipid panel with reflex to direct LDL (10/23/2024 8:44 AM EDT) Cholesterol 145 0 - 200 mg/dL LAB CHEMISTRY METHOD [facility] Triglycerides 80 0 - 150 mg/dL LAB CHEMISTRY METHOD 10/23/2024 1:[facility] HDL 44 >=40 mg/dL LAB CHEMISTRY METHOD 10/23/2024 1:51 PM [facility] LDL Calculated 85 0 - 100 mg/dL LAB CHEMISTRY METHOD 10/23/2024 1:51 PM [facility] Comment:Estimated LDL Calcul ated using equation: Total cholesterol - HDL cholesterol - (Triglycerides/5) VLDL Cholesterol Partha 16 mg/dL LAB CHEMISTRY METHOD 10/23/2024 1:51 PM [facility] Non HDL Chol. (LDL+VLDL) 101 <145 mg/dL LAB CHEMISTRY METHOD 10/23/2024 1:51 PM [facility] Chol/HDL Ratio 3.3 0.0 - 4.4 LAB CHEMISTRY METHOD 10/23/2024 1:51 PM [facility] Blood Venous blood specimen / Unknown Venipuncture / Unknown 10/23/2024 8:44 AM EDT 10/23/2024 8:44 AM EDT Espinoza Yan MD LAB BLOOD ORDERABLES Radha l Result Performing Organization Address [facility]/ZIP Co de Phone Number [facility] [address] [place] [address], [place] [phone] * (ABNORMAL) Microalbumin creatinine urine ratio (10/23/2024 8:44 AM EDT) Creatinine, Urine 147.0 mg/dL LAB CHEMISTRY METHOD 10/23/2024 2:07 PM EDT [facility] Microalb, Ur 31.9(H) 0.0 - 29.0 mg/L LAB CHEMISTRY METHOD 10/23/2024 2:07 PM EDT [facility] Microalb/Crea t Ratio 22 <30 mg/g creat LAB CHEMISTRY METHOD 10/23/2024 2:07 PM EDT [facility] Urine Urine specimen obtained by clean catch procedure / Unknown Non-blood Collection / Unknown 10/23/2024 8:44 AM EDT 10/23/2024 8:44 AM EDT Espinoza Yan MD LAB URINE ORDERABLES Radha l Result Performing Organization Address [facility]/ZIP Co de Phone Number [facility] [address] [place] [address], [place] [phone] * Hemoglobin A1c (10/23/2024 8:44 AM EDT) Hemoglobin A1C 6.2 <6.5 % LAB CHEMISTRY METHOD 10/23/2024 1:45 PM EDT [facility] Mean Bld Glu Estim. 131 mg/dL LAB CHEMISTRY METHOD 10/23/2024 1:45 PM [facility] Blood Venous blood specimen / Unknown Venipuncture / Unknown 10/23/2024 8:44 AM EDT 10/23/2024 8:44 AM EDT Espinoza Yan MD LAB BLOOD ORDERABLES Radha l Result [facility] [address] [place] [address], * Basic metabolic panel (10/23/2024 8:44 AM EDT) Sodium 136 133 - 145 mmol/L LAB CHEMISTRY METHOD 10/23/2024 1:48 PM [facility] Potassium 4.6 3.5 - 5.5 mmol/L LAB CHEMISTRY METHOD 10/23/2024 1:48 PM [facility] Chloride 104 96 - 110 mmol/L LAB CHEMISTRY METHOD 10/23/2024 1:48 PM [facility] CO2 27 21 - 32 mmol/L LAB CHEMISTRY METHOD 10/23/2024 1:48 PM [facility] Anion Gap 5 3 - 11 LAB CHEMISTRY METHOD 10/23/2024 1:48 PM [facility] Glucose 99 70 - 100 mg/dL LAB CHEMISTRY METHOD 10/23/2024 1:48 PM [facility] BUN 14 5 - 25 mg/dL LAB CHEMISTRY METHOD 10/23/2024 1:48 PM [facility] Creatinine 0.74 0.50 - 1.10 mg/dL LAB CHEMISTRY METHOD 10/23/2024 1:48 PM [facility] eGFR 107 >=60 mL/min/1. 73m2 LAB CHEMISTRY METHOD 10/23/2024 1:48 PM [facility] Comment:Calculation based on the Chronic Kidney Disease Epidemiology Collaboration (CKD-EPI) equation refit without adjustment for race. BUN/Creatinine Ratio 18.9 LAB CHEMISTRY METHOD 10/23/2024 1:48 PM EDT [facility] Calcium 9.7 8.5 - 10.5 mg/dL LAB CHEMISTRY METHOD 10/23/2024 1:48 PM EDT [facility] Blood Venous blood specimen / Unknown Venipuncture / Unknown 10/23/2024 8:44 AM EDT 10/23/2024 8:44 AM EDT Espinoza Yan MD LAB BLOOD ORDERABLES Radha l Result [facility] [address] [place] [address], [place] [phone] * External Diabetic Retina Eye Exam Report (07/03/2024) Anatomical Region Laterality Modality Ultrasound Provider [facility] US PROCEDURES Final Result * Cervical Cancer Screening: HPV (08/08/2023) Cervical Cancer Screening: HPV abstracted, negative Historical Provider HEALTH MAINTENANCE Final Result from Last 3 Months or Most Recently Relevant to Health Maintenance Insurance [facility] Care Teams Electronic Organ Mechanic Relationship Specialty Start Date End Date Jennifer Loaiza MD [address] [place] [phone] PCP - General Internal Medicine 10/22/24
== END 2025-01-15 11:26 | disposition home or self-care (01) ==
LOC: HO.HSM 10:55
PROVIDERS: PCP Internal Medicine; Visit Provider Nurse Practitioner
DX: R42 Dizziness and giddiness (principal); R20.2 Paresthesia of skin; G47.8 Other sleep disorders
CPT/HCPCS: 99213